=== PATIENT | female | born 1945 | race Hispanic/Latino ===

== ENCOUNTER 2022-11-07 13:56 | Inpatient (IN) | payer MEDICARE ==
[~2022-11-07] VITALS: Ht 152.4 cm; Wt 74.1 kg
[2022-11-07 14:12] LABS: BASOPHILS % 0.6 % (0.0-1.0); EOSINOPHILS % 0.6 % (0.0-6.0); HEMATOCRIT 28.8 % (34.2-44.1); HEMOGLOBIN 9.4 g/dL (12.0-16.0); LYMPHOCYTES # (AUTO) 0.7 (1.0-3.2); LYMPHOCYTES % 10.5 % (18.0-39.1); MEAN CORPUSCULAR HEMOGLOBIN 27.6 pg (28-32); MEAN CORPUSCULAR HGB CONC 32.6 g/dL (31-35); MEAN CORPUSCULAR VOLUME 84.5 fL (81-99); MONOCYTES # (AUTO) 0.6 (0.2-0.8); MONOCYTES % 7.9 % (4.4-11.3); NEUTROPHILS # (AUTO) 5.7 (2.1-6.9); NEUTROPHILS % 80.3 % (38.7-80.0); PLATELET COUNT 200 x10e3/uL (140-360); RED BLOOD COUNT 3.41 x10e6/uL (3.6-5.1); RED CELL DISTRIBUTION WIDTH 13.2 % (11.7-14.4)
[2022-11-07 14:51] LABS: ALBUMIN/GLOBULIN RATIO 1.2 (0.8-2.0); ANION GAP 13.2 mmol/L (8-16); CALCIUM 9.2 mg/dL (8.4-10.2); CREATININE, SERUM 0.97 mg/dL (0.57-1.11); POTASSIUM 4.2 mmol/L (3.5-5.1)
[2022-11-07 15:07] LABS: CLARITY,URINE CLEAR (CLEAR); COLOR,URINE YELLOW (YELLOW); KETONES,URINE NEGATIVE (NEGATIVE); LEUKOCYTE ESTERASE ,URINE NEGATIVE (NEGATIVE); NITRITE,URINE NEGATIVE (NEGATIVE); PROTEIN,URINE DIPSTICK NEGATIVE (NEGATIVE); URINE UROBILINOGEN 0.2 mg/dL (0.2 - 1)
[2022-11-07 15:11] LABS: BACTERIA,URINE RARE /HPF; EPITHELIAL CELLS,URINE MODERATE /LPF; WBC,URINE (MAN) 0-5 /HPF (0-5)
[2022-11-07] MEDS ORDERED: IOPAMIDOL 370 MG/ML 100 ML INFUS..BTL INJ ONE (17:38)
[2022-11-07] MEDS ORDERED: SODIUM CHLORIDE FLUSH 10 ML SYR INJ PRN (18:15)
[2022-11-07 20:40] VITALS: BP 148/64; PULSE 78; RESP 16; TEMP 97.8; O2SAT 100
[2022-11-07 20:45] VITALS: BP 148/64; PULSE 78; RESP 16; TEMP 97.8; O2SAT 100
[2022-11-07] MEDS ORDERED: DIPHENHYDRAMINE25 MG PO (21:15)
[2022-11-07] MEDS ORDERED: LEVOTHYROXINE75 MCG PO (21:15)
[2022-11-07] MEDS ORDERED: HYDROCODON-ACE1 EA11 PO (21:15)
[2022-11-07] MEDS ORDERED: LISINOPRIL-HCT1 EAC2 PO (21:15)
[2022-11-07] MEDS ORDERED: FOLIC ACID0.4 MG PO (21:15)
[2022-11-07] MEDS ORDERED: HYDROCODONE/APAP 5MG-325MG TAB PO SCH (22:00)
[2022-11-07] MEDS ORDERED: HYDRALAZINE HCL 20 MG/ML VIAL IV PRN (22:00)
[2022-11-07] MEDS: SODIUM CHLORIDE 0.9% 1000ML 1,000 ML IV SCH (22:24)
[2022-11-07] MEDS: ACETAMINOPHEN 325 MG TAB PO PRN (22:25)
[2022-11-07] MEDS: Morphine 2mg Syringe 2 MG/ML SYR IV PRN (23:23)
[2022-11-08] VITALS (8 sets, daily range): BP systolic 118–163; BP diastolic 60–84; PULSE 66–82; RESP 16–19; TEMP 97.6–98; O2SAT 100
[2022-11-08 06:05] LABS: BASOPHILS % 0.7 % (0.0-1.0); EOSINOPHILS # (AUTO) 0.1 (0.0-0.4); HEMATOCRIT 27.1 % (34.2-44.1); HEMOGLOBIN 8.9 g/dL (12.0-16.0); LYMPHOCYTES % 16.8 % (18.0-39.1); MEAN CORPUSCULAR HEMOGLOBIN 27.7 pg (28-32); MEAN CORPUSCULAR HGB CONC 32.8 g/dL (31-35); MEAN CORPUSCULAR VOLUME 84.4 fL (81-99); MONOCYTES # (AUTO) 0.5 (0.2-0.8); NEUTROPHILS # (AUTO) 4.3 (2.1-6.9); NEUTROPHILS % 72.2 % (38.7-80.0); PLATELET COUNT 199 x10e3/uL (140-360); RED BLOOD COUNT 3.21 x10e6/uL (3.6-5.1); RED CELL DISTRIBUTION WIDTH 13.1 % (11.7-14.4)
[2022-11-08 06:31] LABS: ALBUMIN 3.7 g/dL (3.5-5.0); ALBUMIN/GLOBULIN RATIO 1.3 (0.8-2.0); ANION GAP 12.6 mmol/L (8-16); CALCIUM 8.8 mg/dL (8.4-10.2); CREATININE, SERUM 0.86 mg/dL (0.57-1.11); POTASSIUM 3.6 mmol/L (3.5-5.1)
[2022-11-08] MEDS ORDERED: LEVOTHYROXINE SODIUM 75 MCG TAB PO SCH (07:30)
[2022-11-08] MEDS: FOLIC ACID 1 MG TAB PO SCH (08:21)
[2022-11-08] MEDS: HYDROCODONE/APAP 5MG-325MG TAB PO PRN ×2 (08:24→22:47)
[2022-11-08] MEDS: SODIUM CHLORIDE 0.9% 1000ML 1,000 ML IV SCH ×2 (11:41→22:47)
[2022-11-08] MEDS: ACETAMINOPHEN 325 MG TAB PO PRN (13:49)
[2022-11-08 16:13] LABS: ANION GAP 12.6 mmol/L (8-16); CALCIUM 8.9 mg/dL (8.4-10.2); CREATININE, SERUM 0.89 mg/dL (0.57-1.11); POTASSIUM 4.6 mmol/L (3.5-5.1)
[2022-11-08] MEDS ORDERED: PROTONIX20 MG PO (16:14)
[2022-11-08] MEDS: LISINOPRIL 10 MG TAB PO SCH (16:36)
[2022-11-08] MEDS ORDERED: BISACODYL 5 MG TAB EC PO ONE (16:45)
[2022-11-08] MEDS ORDERED: SODIUM CHLORIDE 1 GM TAB PO ONE (17:00)
[2022-11-08] MEDS: PANTOPRAZOLE SOD 40 MG TABEC PO SCH (18:06)
[2022-11-08] MEDS: DOCUSATE SODIUM 100 MG CAP PO SCH (18:06)
[2022-11-08] MEDS: Morphine 2mg Syringe 2 MG/ML SYR IV PRN (20:10)
[2022-11-08] MEDS: TRAZODONE HCL 50 MG TAB PO PRN (22:47)
[2022-11-09] VITALS (7 sets, daily range): BP systolic 125–138; BP diastolic 60–93; PULSE 74–92; RESP 16–20; TEMP 97.3–98.3; O2SAT 100
[2022-11-09 06:01] LABS: ANION GAP 11.9 mmol/L (8-16); CALCIUM 8.4 mg/dL (8.4-10.2); CREATININE, SERUM 0.76 mg/dL (0.57-1.11); POTASSIUM 3.9 mmol/L (3.5-5.1)
[2022-11-09] MEDS: PANTOPRAZOLE SOD 40 MG TABEC PO SCH (06:09)
[2022-11-09] MEDS: LEVOTHYROXINE SODIUM 75 MCG TAB PO SCH (06:09)
[2022-11-09] MEDS: DOCUSATE SODIUM 100 MG CAP PO SCH ×2 (09:00→15:56)
[2022-11-09] MEDS: SODIUM CHLORIDE 0.9% 1000ML 1,000 ML IV SCH ×3 (09:32→21:30)
[2022-11-09] MEDS: Morphine 2mg Syringe 2 MG/ML SYR IV PRN ×4 (11:56→22:30)
[2022-11-09] MEDS: LISINOPRIL 10 MG TAB PO SCH (13:06)
[2022-11-09] MEDS: FOLIC ACID 1 MG TAB PO SCH (13:06)
[2022-11-09] MEDS: TRAZODONE HCL 50 MG TAB PO PRN (20:31)
[2022-11-09] MEDS: ONDANSETRON HCL INJ 2MG/ML 2ML 2 MG/ML VIAL IV PRN (21:30)
[2022-11-10 00:49] VITALS: BP 128/68; PULSE 72; RESP 20; TEMP 97.9; O2SAT 100
[2022-11-10] MEDS: ONDANSETRON HCL INJ 2MG/ML 2ML 2 MG/ML VIAL IV PRN ×2 (04:19→09:29)
[2022-11-10] MEDS: Morphine 2mg Syringe 2 MG/ML SYR IV PRN ×3 (04:20→13:39)
[2022-11-10] MEDS: LEVOTHYROXINE SODIUM 75 MCG TAB PO SCH (05:41)
[2022-11-10] MEDS: SODIUM CHLORIDE 0.9% 1000ML 1,000 ML IV SCH (05:46)
[2022-11-10 06:25] LABS: ANION GAP 9.8 mmol/L (8-16); CALCIUM 8.1 mg/dL (8.4-10.2); CREATININE, SERUM 0.72 mg/dL (0.57-1.11); POTASSIUM 3.8 mmol/L (3.5-5.1)
[2022-11-10 08:00] VITALS: BP 123/63; PULSE 68; RESP 18; TEMP 97.8; O2SAT 100
[2022-11-10] MEDS: PANTOPRAZOLE SOD 40 MG TABEC PO SCH (08:51)
[2022-11-10] MEDS: DOCUSATE SODIUM 100 MG CAP PO SCH ×2 (09:17→16:51)
[2022-11-10] MEDS: FOLIC ACID 1 MG TAB PO SCH (09:17)
[2022-11-10] MEDS: LISINOPRIL 10 MG TAB PO SCH (09:17)
[2022-11-10 11:43] VITALS: BP 124/61; PULSE 73; RESP 18; TEMP 98.3; O2SAT 100
[2022-11-10] MEDS ORDERED: FENTANYL 25 MCG/HR PATCH TOP SCH (15:00)
[2022-11-10 16:00] VITALS: BP 136/73; PULSE 80; RESP 19; TEMP 98.1; O2SAT 100
== END 2022-11-10 18:32 | disposition home or self-care (01) | DRG 181 ==
LOC: ER 14:02 → ERHOLD 18:24 → MED/SURG3 20:42 → OBSVTOIN 11-09 08:40
PROVIDERS: ADMIT Internal Medicine; ATTEND Internal Medicine
DX: C34.90 Malignant neoplasm of unspecified part of unspecified bronchus or lung (principal); E87.1 Hypo-osmolality and hyponatremia; E03.9 Hypothyroidism, unspecified; I10 Essential (primary) hypertension; R91.8 Other nonspecific abnormal finding of lung field; R91.1 Solitary pulmonary nodule; G89.3 Neoplasm related pain (acute) (chronic); Z92.21 Personal history of antineoplastic chemotherapy
CPT/HCPCS: 0223U; 36415; 74177; 74181; 80048; 80053; 81001; 82948; 83690; 85025; 93005; 99284; G0378; J2270; J2405; J7030; Q9967